=== PATIENT | male | born 1960 | race Caucasian/White ===

== ENCOUNTER → 2021-12-04 09:48 | Outpatient (CLI) | payer OTHER, SELFPAY ==
--- NOTE | 2021-12-04 | DI.CT.S_ITS ---
PROCEDURE: CT SINUS SCREEN WO CON INDICATIONS: Deviated nasal septum TECHNIQUE: Noncontrast 3.0 mm axial images acquired from the frontal sinuses to the mid-sella, with coronal and sagittal reformats. For radiation dose reduction, the following was used: automated exposure control, adjustment of mA and/or kV according to patient size. COMPARISON: None. FINDINGS: Image quality: Excellent. Maxillary Sinuses: Mucous retention cysts and [id number] mucosal thickening can be seen within the inferior maxillary sinuses. There is demineralization seen of the medial helton of maxillary sinuses. Ethmoid Air Cells: No bony remodeling or destruction. Sinuses are clear. Sphenoid Sinuses: No bony remodeling or destruction. Sinuses are clear. Frontal Sinuses: No bony remodeling or destruction. Sinuses are clear. Ostiomeatal Complexes: Ostiomeatal complexes are patent. No Claudine cells. Miscellaneous: Visualized intra-orbital contents are normal. No nicole bullosa or paradoxical turbinate curvature. There is moderate rightward nasal septal deviation. IMPRESSION: Moderate rightward nasal septal deviation. Focal maxillary sinus disease. The demineralization of the medial helton of the maxillary sinuses is suggestive of chronic sinusitis. Dictated by: Adelso Dowd M.D. on 12/04/2021 at 9:11 Approved by: Adelso Dowd M.D. on 12/04/2021 at 9:12
== END ==
PROVIDERS: PCP Family Medicine; Referring Provider Otolaryngology; Visit Provider Otolaryngology
DX: J34.2 Deviated nasal septum (principal)
CPT/HCPCS: 70486

== ENCOUNTER → 2022-05-29 10:31 | Outpatient (CLI) | payer OTHER, SELFPAY ==
--- NOTE | 2022-05-29 | DI.MRI.S_ITS ---
PROCEDURE: MR KNEE RT WO CON INDICATIONS: CHRONIC PAIN OF RIGHT KNEE TECHNIQUE: Noncontrast sagittal PD fast spin echo and T2 fast spin echo with fat saturation, sagittal 3-D FLASH with fat saturation; coronal T1 spin echo and PD fast spin echo with fat saturation, and axial PD fast spin echo with fat saturation through the knee. COMPARISON: None. FINDINGS: Image quality: Excellent. Anterior Cruciate Ligament: Intact. Posterior Cruciate Ligament: Intact. Medial Collateral Ligament: Intact. Lateral Collateral Ligament: Intact. Medial Meniscus: There is horizontal oblique tearing of the posterior horn and body of the medial meniscus extending to the inner third of the tibial articular surface. Lateral Meniscus: Intact. Medial and Lateral Tendons: The semimembranosus tendon insertions and meniscocapsular junction appear intact. Visualized portions of the pes anserinus tendons appear normal. No abnormal bursal fluid. The long and short heads of the biceps femoris tendon appear intact. The popliteus tendon appears intact. No signs of posterolateral corner injury. Iliotibial band appears normal. Anterior Structures: The quadriceps and patellar tendons appear intact. No patellar subluxation. No femoral trochlear dysplasia or ventral trochlear prominence. No edema in the infrapatellar fat pad. Bones: No acute trabecular bone injury or fracture. Medial Femorotibial Cartilage: A large area of full-thickness cartilage loss is seen in the weight-bearing portion of the medial femorotibial compartment with mild subchondral edema and marginal osteophyte formation. Lateral Femorotibial Cartilage: Partial-thickness cartilage irregularity is seen in the central portion of the lateral tibial plateau and lateral femoral condyle. Small marginal osteophytes are present. Patellofemoral Cartilage: There is focal full-thickness cartilage loss at the lateral facet of the patella with subchondral cystic changes and edema. Marginal osteophytes are present. Soft Tissues: A small joint effusion is present. A small ganglion cyst or parameniscal cyst is seen adjacent to the anterior root attachment of the medial meniscus measuring 12 x 7 x 6 mm. Trace medial popliteal cyst. The musculature surrounding the knee is normal in bulk. IMPRESSION: 1. 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 Foci of full-thickness cartilage loss are also seen in the anterior compartment and there is grade 2 chondromalacia in the lateral compartment. Tricompartmental marginal osteophytes are present. 2. Horizontal oblique tearing of the posterior horn and body of the medial meniscus extending to the inner third of the tibial articular surface. 3. Intact cruciate and collateral ligaments. No acute trabecular bone injury. 4. Small joint effusion. Dictated by: Oscar Cruz M.D. on 05/30/2022 at 9:25 Approved by: Oscar Cruz M.D. on 05/30/2022 at 9:35
== END ==
PROVIDERS: PCP Nurse Practitioner Family; Referring Provider Nurse Practitioner Family; Visit Provider Nurse Practitioner Family
DX: M94.261 Chondromalacia, right knee (principal); M25.561 Pain in right knee; M25.461 Effusion, right knee; G89.29 Other chronic pain
CPT/HCPCS: 73721

== ENCOUNTER → 2022-08-28 15:50 | Outpatient (CLI) | payer OTHER, SELFPAY ==
[2022-08-28 16:29] LABS: COVID19 -Nasal RAPID Negative (Negative)
== END ==
PROVIDERS: PCP Nurse Practitioner Family; Visit Provider Surgery
DX: Z01.812 Encounter for preprocedural laboratory examination (principal); Z20.822 Contact with and (suspected) exposure to COVID-19
CPT/HCPCS: 87635; C9803

== ENCOUNTER 2022-08-29 07:18 | Day surgery (SDC) | payer OTHER, SELFPAY ==
[2022-08-29 07:48] VITALS: BMI 28.8
[2022-08-29] MEDS: LACTATED RINGERS 1,000 ML 42 ML IV (07:58)
[2022-08-29 08:05] VITALS: BP 147/96; PULSE 76; RESP 16; TEMP 36.7; O2SAT 98
--- NOTE | 2022-08-29 08:23 | PM.HP.1 ---
History of Present Illness History of Present Illness Date Patient Seen: 08/29/22 Time Patient Seen: 08:23 Chief complaint: Colonoscopy Narrative: Second colonoscopy, last one was 10 years. No issues except when his stools are soft it is harder to completely evacuate. No family history for colon cancer Patient History Medical History Chicken pox Fractures (~1995) Migraines Surgical History Lymphoma (~1993) Family & Social History Family History Father Stroke Prostate cancer Hypertension High cholesterol Mental health problem Diabetes mellitus Mother Age: 85 Hypertension High cholesterol Sister Age: 56 Hypertension Mental health problem Social History: household members spouse,significant other Tobacco & Substance use: Smoking Status Former smoker alcohol intake current alcohol intake frequency a few times a week Substance Use Type does not use Meds Home Medications and Allergies Home Medications Medication Instructions Recorded Confirmed Type cholecalciferol (vitamin D3) 50 2,000 unit PO DAILY ##0 06/23/16 08/29/22 History mcg (2,000 unit) capsule (Vitamin D3) multivitamin (Multiple Vitamins 1 tab PO QDAY ##0 06/23/16 08/29/22 History tablet) irbesartan 150 mg tablet 75 mg PO DAILY 08/29/22 08/29/22 History Allergies Allergy/AdvReac Type Severity Reaction Status Date / Time No Known Drug Allergies Allergy Verified 08/29/22 07:45 Review of Systems Review of Systems ROS: Yes All systems reviewed with the patient and are negative except as otherwise documented Exam Vital Signs (past 8 hours): - 08/29/22 08:05 Temperature 98.0 F Pulse Rate 76 Respiratory Rate 16 Blood Pressure 147/96 H Pulse Oximetry 98 Oxygen Delivery Method Room Air Oxygen Delivery Method Room Air Const General: cooperative and healthy appearing HENCA Head: normal to inspection, normocephalic and atraumatic Eyes General: appearance normal, both eyes and all related structures Sclera: sclerae normal Neck Neck: trachea midline Chest Chest: normal inspection of the chest Resp Effort & Inspection: normal respiratory effort and able to speak in complete sentences GI Inspection: normal to inspection Skin General: no rashes or lesions noted and turgor normal Neuro General: patient alert, patient awake and patient oriented x3 Extrem General: full ROM Psych Appearance: grossly normal Affect: normal affect Judgment: judgment good Assessment & Plan Assessment & Plan narrative: colon cancer screening Colonoscopy with moderate sedation COVID-19 COVID-19 status: Negative Time Spent With Patient Time with patient: less than 30 minutes Critical Care time: I spent a total of [] minutes of critical care time on this patient's care today; this time is exclusive of procedural time.
--- NOTE | 2022-08-29 08:26 | PM.OP.COLON ---
Operative Date/Time/Diagnoses Date of procedure: 08/29/22 Time of procedure: 08:26 Pre-op diagnosis: colon cancer screening Post-op diagnosis: same Procedure & Clinicians Study performed: Colonoscopy with moderate sedation Same procedure as scheduled: Yes Indications: Colon cancer screening Surgeon: Olesya Alford Procedure Notes Procedure in detail: Preop diagnosis: Colon cancer screening Postop diagnosis: Same Operative procedure: Colonoscopy with moderate sedation Surgeon: Ryanne Alford MD Anesthetic: Fentanyl 125 mcg, Versed 7 mg Findings: Normal colonoscopy. No abnormalities seen in the rectum or sphincter area Procedure: Patient placed in a lateral position. Rectal exam performed showing normal tone no masses. Colonoscope inserted into the rectum and advanced to ileocecal valve with minimal difficulty. Insufflation extraction of the scope including retroflex in the rectum had the above findings. Impression: No polyps, no diverticulosis. Normal colonoscopy. Plan: Repeat colonoscopy in 10 years unless otherwise indicated by change in clinical condition Sedation minutes: 11 Specimen(s): none sent Complications: none Post-procedure Recommendations: Colonoscopy in 10 years Follow up: as needed Disposition: PACU
[2022-08-29] MEDS: MIDAZOLAM 5 MG/5 ML VIAL 7 MG IV (08:40)
[2022-08-29] MEDS: fentaNYL 100 MCG/2 ML INJ 125 MCG IV (08:40)
[2022-08-29 08:48] VITALS: BP 122/85; PULSE 71; RESP 16; TEMP 36.7; O2SAT 93
[2022-08-29 08:53] VITALS: BP 123/89; PULSE 75; RESP 12; O2SAT 95
[2022-08-29 08:59] VITALS: BP 118/87; PULSE 87; RESP 14; TEMP 36.9; O2SAT 93
[2022-08-29 09:05] VITALS: BP 124/89; PULSE 85; RESP 14; TEMP 36.7; O2SAT 98
== END 2022-08-29 09:20 | disposition home or self-care (01) ==
PROVIDERS: PCP Family Medicine; Referring Provider Surgery; Visit Provider Surgery
PROC: 0DJD8ZZ Inspection of Lower Intestinal Tract, Via Natural or Artificial Opening Endoscopic (ICD-10-PCS; CPT 45378; principal; 2022-08-29 08:30)
DX: Z12.11 Encounter for screening for malignant neoplasm of colon (principal)
CPT/HCPCS: 45378; 99152; J2250; J3010

== ENCOUNTER 2023-04-09 18:38 | Emergency (ER) | payer OTHER, SELFPAY ==
[2023-04-09 18:44] VITALS: BP 140/89; PULSE 86; RESP 18; TEMP 37.7; O2SAT 96
[2023-04-09 19:07] LABS: Appearance Urine UA CLEAR; Bilirubin Urine UA NEGATIVE (NEGATIVE); Color Urine UA YELLOW; Glucose Urine UA NEGATIVE (Negative); Ketones Urine UA NEGATIVE (NEGATIVE); Leukocyte Esterase Urine UA TRACE (NEGATIVE); Nitrite Urine UA NEGATIVE (Negative); Occult Blood Urine UA 1+ (Negative); Protein Urine UA NEGATIVE (Negative); Specific Gravity Urine UA 1.015 (1.000-1.035); Urobilinogen Urine UA 0.2 E.U./dL (0.2)
[2023-04-09 19:08] VITALS: BMI 29.5
[2023-04-09 19:56] LABS: Bacteria Urine Few (2-10); RBC Urine 5-10/HPF (0-5/HPF); Squamous Epithelial Cell Urine 0-1 /HPF (0-5/HPF); Urine Comments WBC CLUMPS PRESENT; WBC Urine 10-30/HPF (0-5/HPF)
--- NOTE | 2023-04-09 20:09 | ED.GENADULT ---
HPI - General Adult General Chief complaint: Urogenital-Male Stated complaint: Infection, Antibiotics not helping Time Seen by Provider: 04/09/23 18:53 Source: patient Mode of arrival: Ambulatory History of Present Illness HPI narrative: Patient is a 62-year-old male who recently was seen by his primary doctor and diagnosed with the urinary tract infection. He was placed on Keflex. He is had approximately 2 days' worth of this medication. He states that he initially was evaluated because he was having dysuria and frequency. He is never had a urinary tract infection in the past. He states that despite being on the antibiotics for the past 2 days he is still having some discomfort with urination. Is also having body aches and fevers. No vomiting. He is still able to urinate. Related Data Home Medications Medication Instructions Recorded Confirmed cholecalciferol (vitamin D3) 50 2,000 unit PO DAILY ##0 06/23/16 08/29/22 mcg (2,000 unit) capsule (Vitamin D3) multivitamin (Multiple Vitamins 1 tab PO QDAY ##0 06/23/16 08/29/22 tablet) irbesartan 150 mg tablet 75 mg PO DAILY 08/29/22 08/29/22 Allergies Allergy/AdvReac Type Severity Reaction Status Date / Time No Known Drug Allergies Allergy Verified 04/09/23 18:49 Review of Systems Constitutional Constitutional: Reports system reviewed and no additional complaints, except as documented Gastrointestinal Gastrointestinal: Reports system reviewed and no additional complaints, except as documented Genitourinary Genitourinary: Reports system reviewed and no additional complaints, except as documented Musculoskeletal Musculoskeletal: Reports system reviewed and no additional complaints, except as documented Integumentary/Breasts Skin/Breast: Reports system reviewed and no additional complaints, except as documented Patient History Medical History Chicken pox Fractures (~1995) Migraines Surgical History Lymphoma (~1993) Family History Father Stroke Prostate cancer Hypertension High cholesterol Mental health problem Diabetes mellitus Mother Age: 85 Hypertension High cholesterol Sister Age: 56 Hypertension Mental health problem Social History household members: spouse and significant other Smoking Status: Former smoker alcohol intake: current Smoking Status: Former smoker alcohol intake frequency: a few times a week Substance Use Type: does not use Exam Initial Vital Signs Initial Vital Signs: Vital Signs Temperature 99.8 F H 04/09/23 18:44 Pulse Rate 86 04/09/23 18:44 Respiratory Rate 18 04/09/23 18:44 Blood Pressure 140/89 04/09/23 18:44 Pulse Oximetry 96 04/09/23 18:44 Oxygen Delivery Method Room Air 04/09/23 18:44 HENMT Head: normal to inspection and normocephalic Resp Effort & Inspection: normal respiratory effort Cardio Rate: regular rate GI Inspection: non-distended Neuro General: patient alert, patient awake and moves all extremities Course Orders Ordered: ED Orders 04/09/23 18:53 Urinalysis and Microscopic Stat Urine Culture Stat Vital Signs Vital signs: Vital Signs - 8 hr 04/09/23 18:44 04/09/23 20:12 Temperature 99.8 F H 98.8 F Pulse Rate 86 83 Respiratory Rate 18 16 Blood Pressure 140/89 132/80 Pulse Oximetry 96 100 Oxygen Delivery Method Room Air Room Air Medical Decision Making Medical Records Medical records reviewed: Yes I reviewed the patient's medical records. Lab Data Lab results reviewed: Yes I reviewed the patient's lab results. Labs: Lab Results 04/09/23 Range/Units 18:53 Urine Color Yellow Urine Appearance Clear Urine pH 6.0 (4.5-8.0) Ur Specific [place] 1.015 (1.000-1.035) Urine Protein Negative (Negative) Urine Glucose (UA) Negative (Negative) g/dL Urine Ketones Negative (NEGATIVE) Urine Occult Blood 1+ H (Negative) Urine Nitrate Negative (Negative) Urine Bilirubin Negative (NEGATIVE) Urine Urobilinogen 0.2 (0.2) E.U./dL Ur Leukocyte Esterase Trace H (NEGATIVE) Urine RBC 5-10/hpf H (0-5/HPF) Urine WBC 10-30/hpf H (0-5/HPF) Ur Squamous Epith Cells 0-1 /hpf (0-5/HPF) Urine Bacteria Few (2-10) H (None) Micro UA Comment Wbc clumps present MDM Narrative Medical decision making narrative: I was able to review the urinalysis from a couple days ago. They had a printout of the results in his very similar to his urinalysis today. Given his presenting symptoms in the urinalysis this is consistent with a urinary tract infection. I have low suspicion for pyelo. He is still tolerating oral intake. Patient is well-appearing. Is not toxic. Had a long discussion with him and his regarding his symptoms. He is only been on the antibiotics for the past 2 days and without a specific urine culture (which we did obtain today) switching him to another antibiotics would potentially put him in a situation where when the urine culture from today results we may need to switch him to a 3rd antibiotic. We discussed the Keflex is a very reasonable initial choice of antibiotics for urinary tract infection. After this discussion the decision was made to keep him on his current antibiotics. He understands that there is a urine culture pending at the time of his discharge and we will contact him if we need to change any antibiotics. No indication for admission to the hospital. No indication for lab work. He was given return precautions. He expressed understanding and agreement. Discharge Plan Departure Patient Disposition: Home Clinical Impression: Urinary tract infection Instructions: DI for Urinary Tract Infection (UTI) Activity Restrictions/Additional Instructions: Urine culture was obtained and is pending at the time of your discharge we will contact you if we need to change any antibiotics. I do recommend that you continue on your current antibiotic. You can take Tylenol/ibuprofen for any fevers or body aches. I also recommend that you contact your primary doctor for a follow-up for further evaluation as to why the urinary tract infection happened in the 1st place. Return to the emergency department for new or worsening symptoms. Prescriptions: No Action multivitamin [Multiple Vitamins] 1 EACH tablet 1 tab PO QDAY Qty: 0 cholecalciferol (vitamin D3) [Vitamin D3] 2,000 UNIT capsule 2,000 unit PO DAILY Qty: 0 irbesartan 150 mg tablet 75 mg PO DAILY Patient Comments: TAKE ONE(1) TABLET BY MOUTH ONCE DAILY Referrals: Jagruti Pelayo MD [Primary Care Provider] - Stand Alone Forms: Patient Portal/API
[2023-04-09 20:12] VITALS: BP 132/80; PULSE 83; RESP 16; TEMP 37.1; O2SAT 100
== END 2023-04-09 20:16 | disposition home or self-care (01) ==
PROVIDERS: Emergency Provider Emergency Medicine; PCP Family Medicine
DX: N39.0 Urinary tract infection, site not specified (principal)
CPT/HCPCS: 81001; 87077; 87086; 99282

== ENCOUNTER → 2023-07-29 17:19 | Outpatient (CLI) | payer OTHER, SELFPAY ==
--- NOTE | 2023-07-29 17:38 | DI.MRI.S_ITS ---
PROCEDURE: MR KNEE RT WO CON INDICATIONS: s/p rt knee arthroscopy TECHNIQUE: Noncontrast sagittal PD fast spin echo and T2 fast spin echo with fat saturation, sagittal 3-D FLASH with fat saturation; coronal T1 spin echo and PD fast spin echo with fat saturation, and axial PD fast spin echo with fat saturation through the knee. COMPARISON: [facility] [place], CR, XR KNEE 4+ VIEWS RIGHT, 06/12/2022, 12:21. FINDINGS: Image quality: Excellent. Menisci: Linear horizontal high T2 signal intensity traverses the inner, middle, and peripheral thirds of the posterior horn medial meniscus, demonstrating inferior articular surface extension, indicating horizontal tearing. Lateral meniscus is intact. Cruciate ligaments: The anterior and posterior cruciate ligaments appear intact. Medial structures: The medial collateral ligament appears intact. Visualized portions of the pes anserinus tendons appear normal. No abnormal bursal fluid. Lateral structures: The lateral collateral ligament, long and short heads of the biceps femoris tendon appear intact. The popliteus tendon appears normal. Iliotibial band appears normal. Anterior structures: The quadriceps and patellar tendons appear intact. Patellar alignment is normal. No femoral trochlear dysplasia or ventral trochlear prominence. No edema in the infrapatellar fat pad. Bones and cartilage: No bone marrow contusions or fractures. There is mild tricompartmental periarticular osteophyte formation. Severe articular cartilage loss diffusely overlies the weight-bearing aspects of the medial femoral condyle and medial tibial plateau. Mild articular cartilage loss diffusely overlies the weight-bearing aspects of the lateral femoral condyle and lateral tibial plateau. Moderate articular cartilage loss overlies the medial and lateral patellar facets. Superimposed high-grade regions of articular cartilage loss overlies the patellar apex and lateral patellar facet. Joint space: There is a moderate knee joint effusion and a trace Valadez's cyst. Normal appearing synovial plicae are incidentally noted. IMPRESSION: 1. Tricompartmental osteoarthritis with associated articular cartilage loss. 2. Medial meniscal tearing. 3. Knee joint effusion. Dictated by: Pavan Avila M.D. on 07/30/2023 at 10:15 Approved by: Pavan Avila M.D. on 07/30/2023 at 10:17
== END ==
PROVIDERS: PCP Family Medicine; Referring Provider Orthopaedic Surgery; Visit Provider Orthopaedic Surgery
DX: S83.241A Other tear of medial meniscus, current injury, right knee, initial encounter (principal); M17.11 Unilateral primary osteoarthritis, right knee; M25.461 Effusion, right knee; Z98.890 Other specified postprocedural states
CPT/HCPCS: 73721